=== PATIENT | male | born 1995 | race Caucasian/White ===

== ENCOUNTER 2022-07-12 19:39 | Emergency (ER) | payer MEDICAID ==
[~2022-07-12] VITALS: Ht 182.9 cm; Wt 106.2 kg
[2022-07-12 19:46] VITALS: BP 146/94
[2022-07-12] MEDS ORDERED: BACITRACIN ZINC OINT UDPKT TOP ONE (23:45)
[2022-07-12] MEDS ORDERED: LIDOCAINE HCL/PF 1% 10 MG/ML 5ML VIAL INFIL ONE (23:45)
[2022-07-13] MEDS ORDERED: IBUP-2029 MT (00:46)
[2022-07-13] MEDS ORDERED: CEPH500C2 MT (00:46)
== END 2022-07-13 01:37 | disposition home or self-care (01) ==
LOC: ER 19:39
DX: M79.645 Pain in left finger(s) (principal)
CPT/HCPCS: 73130; 99283; J3490

== ENCOUNTER 2022-12-24 23:37 | Emergency (ER) | payer MEDICAID, MEDICARE ==
[~2022-12-24] VITALS: Ht 182.9 cm; Wt 111.3 kg
[~2022-12-24 23:37] MED LIST: CEPH500C2 MT; IBUP-2029 MT
[2022-12-25 00:22] VITALS: O2SAT 98
[2022-12-25] MEDS ORDERED: SULF1TAB48 MT (00:46)
[2022-12-25 01:20] VITALS: BP 138/92; PULSE 75; RESP 16; TEMP 98.2
== END 2022-12-25 01:29 | disposition home or self-care (01) ==
LOC: ER 23:48
DX: L98.9 Disorder of the skin and subcutaneous tissue, unspecified (principal)
CPT/HCPCS: 99283

== ENCOUNTER 2023-03-08 11:33 | Emergency (ER) | payer MEDICARE ==
[~2023-03-08] VITALS: Ht 182.9 cm; Wt 113.0 kg
[~2023-03-08 11:33] MED LIST changes: +SULF1TAB48 MT
[2023-03-08 11:36] VITALS: BP 148/86; PULSE 62; RESP 18; TEMP 97.8; O2SAT 98
[2023-03-08] MEDS ORDERED: NEOM28OI48 TP (13:19)
== END 2023-03-08 13:44 | disposition home or self-care (01) ==
LOC: ER 11:56
DX: L03.031 Cellulitis of right toe (principal)
CPT/HCPCS: 99282

== ENCOUNTER 2023-08-01 20:15 | Emergency (ER) | payer MEDICAID, MEDICARE ==
[~2023-08-01] VITALS: Ht 185.4 cm; Wt 103.8 kg
[~2023-08-01 20:15] MED LIST changes: +NEOM28OI48 TP
[2023-08-01 21:14] VITALS: BP 135/99; PULSE 79; RESP 16; TEMP 98; O2SAT 97
[2023-08-01] MEDS ORDERED: P50 MT (22:20)
== END 2023-08-01 22:47 | disposition home or self-care (01) ==
LOC: ER 20:24
DX: R21 Rash and other nonspecific skin eruption (principal)
CPT/HCPCS: 99283

== ENCOUNTER 2024-12-29 19:40 | Emergency (ER) | payer MEDICAID, MEDICARE ==
[~2024-12-29] VITALS: Ht 182.9 cm; Wt 100.0 kg
[~2024-12-29 19:40] MED LIST changes: -CEPH500C2 MT; -IBUP-2029 MT; +INSU100I13 SQ; +INSU100I28 SQ; -NEOM28OI48 TP; -SULF1TAB48 MT
[2024-12-29 20:09] VITALS: TEMP 36.8; O2SAT 98
[2024-12-29] MEDS ORDERED: MUPI1OIN4 TP (20:52)
[2024-12-29] MEDS ORDERED: CEPH500C2 MT (20:52)
[2024-12-29 21:01] VITALS: BP 129/80; PULSE 67; RESP 12; O2SAT 98
[2024-12-29] MEDS: TETANUS, DIPHTHERIA, PERTUSSIS VAC/PF 0.5ML (>10YR OLD) IM ONE (21:03)
== END 2024-12-29 21:08 | disposition home or self-care (01) ==
LOC: ER 19:40
DX: L03.90 Cellulitis, unspecified (principal); E11.9 Type 2 diabetes mellitus without complications; Z79.4 Long term (current) use of insulin; Z79.899 Other long term (current) drug therapy
CPT/HCPCS: 90715; 90471; 99283; Z7610